=== PATIENT | female | born 1995 | race Caucasian/White ===

== ENCOUNTER 2022-03-24 19:15 | Inpatient (IN) | payer OTHER ==
[2022-03-24] MEDS ORDERED: DEXTROSE 5%-LACTATED RINGERS 1,000 ML IV SCH (19:45)
[2022-03-24] MEDS ORDERED: SODIUM CHLORIDE 500 ML IV STA (19:55)
[2022-03-24 19:59] VITALS: BMI 28.1
[2022-03-24 21:08] LABS: BASO % 0.3 % (0-2.0); EOS % 0.2 % (0-4.5); HEMATOCRIT 40.6 % (32.4-45.2); HEMOGLOBIN 13.6 GM/dL (10.7-15.3); LYMPH % 24.3 % (8-40); MCH 28.3 pg (25.7-33.7); MCHC 33.4 g/dl (32.0-36.0); MEAN CELL VOLUME 84.5 fl (80-96); MEAN PLT VOLUME 9.7 fl (7.5-11.1); MONO % 7.1 % (3.8-10.2); NEUT % 68.1 % (42.8-82.8); PLATELET COUNT 224 10^3/uL (134-434); RBC 4.81 M/mm3 (3.60-5.2); WHITE BLOOD COUNT 11.9 K/mm3 (4.0-10.0)
[2022-03-24 21:18] LABS: INR 0.97 (0.83-1.09); PROTHROMBIN TIME (PATIENT) 11.1 SEC (9.7-13.0)
[2022-03-24 21:27] LABS: BLOOD UREA NITROGEN 7.4 mg/dL (7-18); CALCIUM 9.6 mg/dL (8.5-10.1)
[2022-03-24 21:28] LABS: ALBUMIN 3.2 g/dl (3.4-5.0)
[2022-03-24] MEDS ORDERED: MISOPROSTOL 25 MCG TABLET (COMPOUNDED BY PHARMACY) PV SCH (21:30)
[2022-03-24 21:31] LABS: CREATININE 0.4 mg/dL (0.55-1.3)
[2022-03-24 21:32] LABS: BILIRUBIN,TOTAL 0.4 mg/dL (0.2-1); TOT PROT 6.7 g/dl (6.4-8.2)
[2022-03-24] MEDS ORDERED: OXYTOCIN 30 UNITS in 0.9% NS 30 UNIT/500 ML INFUS.BAG IVPB ONE (22:42)
[2022-03-24] MEDS ORDERED: OXYTOCIN 30 UNITS in 0.9% NS 30 UNIT/500 ML INFUS.BAG IVPB SCH (22:45)
[2022-03-25] MEDS: DEXTROSE 5%-LACTATED RINGERS 1,000 ML IV SCH ×2 (01:15→21:00)
[2022-03-25] MEDS ORDERED: morphine SULFATE 4 MG/ML VIAL IVPB ONE (05:31)
[2022-03-25] MEDS ORDERED: FENTANYL/BUPIVACAINE/NS/PF - PCEA - 50 ML DISP.SYRIN EP ONE (07:02)
[2022-03-25] MEDS ORDERED: NALOXONE HCL 0.4 MG/ML VIAL IVPUSH PRN (07:30)
[2022-03-25] MEDS ORDERED: FENTANYL/BUPIVACAINE/NS/PF - PCEA - 50 ML DISP.SYRIN EP SCH (07:45)
[2022-03-25 08:19] VITALS: RESP 18
[2022-03-25] MEDS ORDERED: OXYTOCIN 20 UNITS in 0.9% NS 20 UNIT/1,000 ML INFUS.BAG IV ONE ×3 (09:48→19:00)
[2022-03-25] MEDS ORDERED: WITCH HAZEL 50% (TUCKS) 40 PAD/JAR PAD TP PRN (11:33)
[2022-03-25] MEDS ORDERED: ACETAMINOPHEN 325 MG TABLET (FP) PO PRN (11:33)
[2022-03-25] MEDS ORDERED: BENZOCAINE 20% 57 GM BOTTLE TP PRN (11:33)
[2022-03-25] MEDS ORDERED: BENZOCAINE 28 GM HEMORRHOIDAL OINTMENT TP PRN (11:33)
[2022-03-25 11:37] LABS: CORD BASE EXCESS -3.2 mmol/L (0-2); CORD HCO3 25.4 mmHg (20-29); CORD PCO2 59.2 mmHg (30-78); CORD pH 7.25 (7.14-7.44)
[2022-03-25 11:40] LABS: CORD BASE EXCESS -2.7 mmol/L (0-2); CORD HCO3 23.4 mmHg (20-29); CORD PCO2 44.7 mmHg (30-78); CORD pH 7.336 (7.14-7.44)
[2022-03-25] MEDS ORDERED: OXYTOCIN 20 UNITS in 0.9% NS 20 UNIT/1,000 ML INFUS.BAG IV SCH (11:45)
[2022-03-25] MEDS ORDERED: OXYTOCIN 10 UNITS/ML VIAL ONE (12:07)
[2022-03-25] MEDS ORDERED: KCL IV SCH (12:30)
[2022-03-25] MEDS ORDERED: OXYTOCIN IV SCH (12:30)
[2022-03-25] MEDS ORDERED: SODIUM CHLORIDE IV SCH (12:30)
[2022-03-25] MEDS ORDERED: IBUPROFEN 600 MG TABLET (FP) PO ONE (13:02)
[2022-03-25] MEDS: IBUPROFEN 600 MG TABLET (FP) PO PRN ×2 (13:05→23:16)
[2022-03-25] MEDS ORDERED: METHYLERGONOVINE MALEATE 0.2 MG TABLET (FP) PO SCH (18:32)
[2022-03-25] MEDS ORDERED: METHYLERGONOVINE MALEATE 0.2 MG/1 ML AMP IM ONE (19:00)
[2022-03-25 20:40] LABS: BASO % 0.3 % (0-2.0); EOS % 0.2 % (0-4.5); HEMATOCRIT 30.4 % (32.4-45.2); HEMOGLOBIN 10.2 GM/dL (10.7-15.3); LYMPH % 17.7 % (8-40); MCH 28.8 pg (25.7-33.7); MCHC 33.6 g/dl (32.0-36.0); MEAN CELL VOLUME 85.5 fl (80-96); MEAN PLT VOLUME 8.9 fl (7.5-11.1); MONO % 7.6 % (3.8-10.2); NEUT % 74.2 % (42.8-82.8); PLATELET COUNT 184 10^3/uL (134-434); RBC 3.56 M/mm3 (3.60-5.2); RDW 14.1 % (11.6-15.6); WHITE BLOOD COUNT 17.8 K/mm3 (4.0-10.0)
[2022-03-25 20:45] LABS: INR 0.97 (0.83-1.09); PROTHROMBIN TIME (PATIENT) 11.2 SEC (9.7-13.0)
[2022-03-25 20:48] LABS: ACTIVATED PTT 28.2 SECONDS (25.2-36.5)
[2022-03-25] MEDS: diphenhydrAMINE HCL 25 MG CAPSULE (FP) PO PRN (23:11)
[2022-03-25] MEDS: METHYLERGONOVINE MALEATE 0.2 MG TABLET (FP) PO SCH (23:18)
[2022-03-26] MEDS: METHYLERGONOVINE MALEATE 0.2 MG TABLET (FP) PO SCH ×4 (01:39→17:57)
[2022-03-26] MEDS: IBUPROFEN 600 MG TABLET (FP) PO PRN ×4 (06:05→21:34)
[2022-03-26 09:31] LABS: BASO % 0.2 % (0-2.0); EOS % 0.3 % (0-4.5); HEMATOCRIT 28.2 % (32.4-45.2); HEMOGLOBIN 9.5 GM/dL (10.7-15.3); LYMPH % 21.4 % (8-40); MCH 28.8 pg (25.7-33.7); MCHC 33.8 g/dl (32.0-36.0); MEAN CELL VOLUME 85.4 fl (80-96); MEAN PLT VOLUME 8.4 fl (7.5-11.1); MONO % 6.5 % (3.8-10.2); NEUT % 71.6 % (42.8-82.8); PLATELET COUNT 203 10^3/uL (134-434); RDW 14.1 % (11.6-15.6); WHITE BLOOD COUNT 17.3 K/mm3 (4.0-10.0)
[2022-03-26] MEDS: PRENATAL VITAMINS W/ FOLIC ACID TABLET (FP) PO SCH (10:15)
[2022-03-26] MEDS: FERROUS SO4 325 MG TABLET (FP) PO SCH ×2 (10:15→16:49)
[2022-03-26] MEDS: CEPHALEXIN MONOHYDRATE 500 MG CAPSULE (UD) PO SCH ×2 (14:57→21:34)
[2022-03-26] MEDS ORDERED: SENNOSIDES/DOCUSATE COMBO (SENNA PLUS) TABLET (UD) PO PRN (22:00)
[2022-03-26] MEDS: diphenhydrAMINE HCL 25 MG CAPSULE (FP) PO PRN (23:45)
[2022-03-27] MEDS: METHYLERGONOVINE MALEATE 0.2 MG TABLET (FP) PO SCH (00:18)
[2022-03-27] MEDS: IBUPROFEN 600 MG TABLET (FP) PO PRN (09:17)
[2022-03-27] MEDS: CEPHALEXIN MONOHYDRATE 500 MG CAPSULE (UD) PO SCH (09:29)
[2022-03-27] MEDS: PRENATAL VITAMINS W/ FOLIC ACID TABLET (FP) PO SCH (09:29)
[2022-03-27] MEDS: FERROUS SO4 325 MG TABLET (FP) PO SCH (09:29)
[2022-03-27 10:03] VITALS: BP 103/67; PULSE 81; TEMP 99.2
== END 2022-03-27 13:40 | disposition home or self-care (01) | DRG 560 ==
LOC: JLDR 19:15 → J3W 03-25 13:32
PROVIDERS: ADMIT Obstetrics & Gynecology Maternal & Fetal Medicine; ATTEND Obstetrics & Gynecology Maternal & Fetal Medicine
PROC: 3E033VJ Introduction of Other Hormone into Peripheral Vein, Percutaneous Approach (ICD-10-PCS; 2022-03-24)
PROC: 10E0XZZ Delivery of Products of Conception, External Approach (ICD-10-PCS; principal; 2022-03-25)
PROC: 0UC97ZZ Extirpation of Matter from Uterus, Via Natural or Artificial Opening (ICD-10-PCS; 2022-03-25)
PROC: 3E0P7VZ Introduction of Hormone into Female Reproductive, Via Natural or Artificial Opening (ICD-10-PCS; 2022-03-25)
DX: O72.2 Delayed and secondary postpartum hemorrhage (principal); O99.12 Other diseases of the blood and blood-forming organs and certain disorders involving the immune mechanism complicating childbirth; D68.59 Other primary thrombophilia; O90.81 Anemia of the puerperium; D72.829 Elevated white blood cell count, unspecified; Z3A.40 40 weeks gestation of pregnancy; Z37.0 Single live birth; Z87.59 Personal history of other complications of pregnancy, childbirth and the puerperium
CPT/HCPCS: 36415; 36600; 59409; 80053; 82803; 85025; 85610; 85730; 86780; 86850; 86900; 86901; 88307-TC; C9803-CS; U0003; U0005

== ENCOUNTER 2024-04-21 02:15 | Inpatient (IN) | payer OTHER ==
[2024-04-21] MEDS: DEXTROSE 5%-LACTATED RINGERS 1,000 ML IV SCH (03:45)
[2024-04-21] MEDS: SODIUM CHLORIDE 1,000 ML IV STA (04:58)
[2024-04-21 05:19] LABS: BASO % 0.1 % (0-2.0); EOS % 0.4 % (0-4.5); HEMATOCRIT 37.6 % (32.4-45.2); HEMOGLOBIN 12.2 GM/dL (10.7-15.3); LYMPH % 25.1 % (8-40); MCH 28.3 pg (25.7-33.7); MCHC 32.6 g/dl (32.0-36.0); MEAN CELL VOLUME 86.9 fl (80-96); MEAN PLT VOLUME 8.7 fl (7.5-11.1); MONO % 7.4 % (3.8-10.2); PLATELET COUNT 181 10^3/uL (134-434); RBC 4.33 M/mm3 (3.60-5.2); RDW 14.6 % (11.6-15.6); WHITE BLOOD COUNT 12.2 K/mm3 (4.0-10.0)
[2024-04-21 05:22] LABS: POTASSIUM 3.9 mmol/L (3.5-5.1)
[2024-04-21 05:24] VITALS: BMI 27.8
[2024-04-21 05:24] LABS: CALCIUM 9.4 mg/dL (8.5-10.1)
[2024-04-21 05:25] LABS: BLOOD UREA NITROGEN 5.7 mg/dL (7-18)
[2024-04-21] MEDS ORDERED: FENTANYL/BUPIVACAINE/NS/PF - PCEA - 50 ML DISP.SYRIN EP ONE (05:27)
[2024-04-21 05:28] LABS: CREATININE 0.4 mg/dL (0.55-1.3)
[2024-04-21 05:29] LABS: BILIRUBIN,TOTAL 0.4 mg/dL (0.2-1)
[2024-04-21] MEDS: ELECTROLYTE-148 SOLN 500 ML IV ONE (05:30)
[2024-04-21] MEDS: FENTANYL/BUPIVACAINE/NS/PF - PCEA - 50 ML DISP.SYRIN EP SCH (06:00)
[2024-04-21] MEDS ORDERED: NALOXONE HCL 0.4 MG/ML VIAL IVPUSH PRN (06:05)
[2024-04-21] MEDS ORDERED: OXYTOCIN 20 UNITS in 0.9% NS 20 UNIT/1,000 ML INFUS.BAG IV ONE ×2 (07:16→09:57)
[2024-04-21] MEDS ORDERED: WITCH HAZEL 50% (TUCKS) 40 PAD/JAR PAD TP PRN (07:55)
[2024-04-21] MEDS ORDERED: BENZOCAINE 20% 57 GM BOTTLE TP PRN (07:55)
[2024-04-21 08:29] LABS: CORD BASE EXCESS -2.8 mmol/L (0-2); CORD HCO3 22.2 mmHg (20-29); CORD PCO2 39.4 mmHg (30-78); CORD pH 7.368 (7.14-7.44)
[2024-04-21] MEDS: IBUPROFEN 600 MG TABLET (FP) PO PRN (10:40)
[2024-04-21] MEDS: ACETAMINOPHEN 325 MG TABLET (FP) PO PRN (12:21)
[2024-04-21 14:50] LABS: HIV INTERPRETATION NEGATIVE (NEGATIVE)
[2024-04-21] MEDS: ELECTROLYTE-148 SOLN 1,000 ML IV SCH (19:16)
[2024-04-21] MEDS: OXYTOCIN 20 UNITS in 0.9% NS 20 UNIT/1,000 ML INFUS.BAG IV SCH (19:18)
[2024-04-22 06:00] VITALS: TEMP 98.1
[2024-04-22 08:04] LABS: BASO % 0.5 % (0-2.0); EOS % 0.6 % (0-4.5); HEMATOCRIT 35.5 % (32.4-45.2); HEMOGLOBIN 11.6 GM/dL (10.7-15.3); LYMPH % 28.1 % (8-40); MCH 28.6 pg (25.7-33.7); MCHC 32.6 g/dl (32.0-36.0); MEAN CELL VOLUME 87.9 fl (80-96); MEAN PLT VOLUME 8.4 fl (7.5-11.1); MONO % 7.7 % (3.8-10.2); NEUT % 63.1 % (42.8-82.8); PLATELET COUNT 182 10^3/uL (134-434); RBC 4.04 M/mm3 (3.60-5.2); RDW 14.9 % (11.6-15.6); WHITE BLOOD COUNT 12.4 K/mm3 (4.0-10.0)
[2024-04-22] MEDS ORDERED: OXYTOCIN 20 UNITS in 0.9% NS 20 UNIT/1,000 ML INFUS.BAG IV ONE (09:50)
[2024-04-22 10:19] VITALS: BP 105/70; PULSE 76; RESP 16
== END 2024-04-22 15:40 | disposition home or self-care (01) | DRG 560 ==
LOC: JDEL 02:15 → JLDR 03:30 → J3W 10:00
PROVIDERS: ADMIT Obstetrics & Gynecology Maternal & Fetal Medicine; ATTEND Obstetrics & Gynecology Maternal & Fetal Medicine
PROC: 10E0XZZ Delivery of Products of Conception, External Approach (ICD-10-PCS; principal; 2024-04-21)
DX: O80 Encounter for full-term uncomplicated delivery (principal); Z3A.38 38 weeks gestation of pregnancy; Z37.0 Single live birth
CPT/HCPCS: 36415; 36600; 59409; 80053; 82803; 85025; 85730; 86780; 86850; 86900; 86901; 87389; 88307-TC